=== PATIENT | female | born 1980 | race Caucasian/White ===

== ENCOUNTER 2018-10-16 12:24 | Inpatient (IN) | payer OTHER ==
[~2018-10-16 12:24] MED LIST: BACITRACIN 50,000 UNIT VIAL ONE; CLINDAMYCIN PHOSPHATE 900 MG/6 ML VIAL ONE; DEXAMETHASONE SOD PHOS 4 MG/ML VIAL ONE; LACTATED RINGERS 1,000 ML IV.SOLN IV ONE; LIDOCAINE HCL/PF 2% 100 MG/5 ML VIAL IJ ONE; NORMAL SALINE 1,000 ML IV.SOLN IV ONE; ONDANSETRON HCL/PF 4 MG/ 2ML VIAL ONE; PHENYLEPHRINE HCL 10 MG/1 ML ONE; PROPOFOL 200 MG/20 ML VIAL IV ONE; ROCURONIUM BROMIDE 10 MG/ML 5ML VIAL ONE; SEVOFLURANE 250 ML LIQUID IH ONE; SUGAMMADEX 200 mg/2mL 200 MG/2 ML VIAL IV ONE; THROMBIN (RECOMBINANT) 20,000 UNIT VIAL TP ONE
[2018-10-16] MEDS ORDERED: HYDROmorphone HCL 2 MG TABLET PO PRN (18:40)
[2018-10-16] MEDS ORDERED: PROMETHAZINE HCL 25 MG in 0.9 % SODIUM CHLORIDE 50 ML IV PRN (18:40)
[2018-10-16] MEDS ORDERED: diphenhydrAMINE HCL 50 MG/ML VIAL IVP PRN (18:40)
[2018-10-16] MEDS ORDERED: fentaNYL CITRATE/PF 100 MCG/ 2ML AMP IVP PRN ×2 (18:40)
[2018-10-16] MEDS ORDERED: MORPHINE SULFATE 4 MG/ML PREFILLED SYR IVP PRN (18:40)
[2018-10-16] MEDS ORDERED: diphenhydrAMINE HCL 25 MG TABLET PO PRN (18:40)
[2018-10-16] MEDS ORDERED: DIAZEPAM 5 MG TABLET PO PRN (18:40)
[2018-10-16] MEDS ORDERED: oxyCODONE HCL 5 MG TABLET PO PRN (18:40)
[2018-10-16] MEDS ORDERED: ONDANSETRON HCL/PF 4 MG/ 2ML VIAL IVP PRN (18:40)
[2018-10-16] MEDS ORDERED: LEVALBUTEROL HCL 1.25 MG/3 ML AMPUL.NEB NEB PRN (18:40)
[2018-10-16] MEDS ORDERED: ACETAMINOPHEN 500 MG TABLET PO PRN (18:40)
[2018-10-16] MEDS: 0.9 % SODIUM CHLORIDE 1,000 ML IV SCH (19:15)
--- NOTE | 2018-10-16 19:35 | History and Physical Report ---
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 Patient has had some chronic back pain with radiculopathy. Patient has had over 10 steroid injections over the last three years with minimal improvement. Patient back pain has continued to progress. Patient was seen by Dr. Villalobos and was felt that she would benefit from L5-S1 total disc replacement. Patient did not have any intraoperative complications or problems. Patient blood pressure was a little soft during the procedure running approximately 90-100/42-60. Patient was transferred to the floor in stable condition. - Past Medical History Cardiac: Other (heart murmur, ? related to artic valve) Pulmonary: Asthma (patient uses her rescure inhaler approximately 1 to 2 times a week.) Gastrointestinal: GERD - Past Surgical History Past Surgical History: Tonsillectomy, Other (achilles tendon repair, laparoscopic surgery for endometriosis, Left forearm fracture, Right rotator cuff repair) - Past Family History Mother Family History: None (68yo), DM (prediabetic), Other (asthma) Father Family History: None (68yo), Other (bipolar) - Past Social History Smoke: No Occupation: Disabled Alcohol: None Drugs: None Lives: Alone Domestic Violence: Negative - Health Maintenance Health Maintenance: Influenza Vaccine Influenza Vaccine: Current for this Influenza Season Pneumonia Vaccine: No Resuscitation Status: Resusciation Status Resuscitation Status Full Code - Unable to Obtain History Unable to Obtain: No Review of Systems - Review of Systems Constitutional: negative: Fever, Chills Eyes: other (glasses). negative: pain, vision change ENT: negative: Ear Pain, Nose Discharge Respiratory: negative: Cough, Dry, Shortness of Breath, Hemoptysis, SOB with Excertion, Pleuritic Pain, Sputum, Wheezing Cardiovascular: negative: Chest Pain, Palpitations, Orthopnea, Edema Gastrointestinal: Constipation. negative: Nausea, Vomiting, Abdominal Pain, Diarrhea, Melena Genitourinary: negative: Dysuria, Frequency, Incontinence Musculoskeletal: Back Pain Skin: negative: Rash Neurological: negative: Weakness, Numbness - Medications/Allergies Allergies/Adverse Reactions: Allergies Allergy/AdvReac Type Severity Reaction Status Date / Time Penicillins AdvReac Rash Verified 10/16/18 18:52 Home Medications: Home Medications Albuterol Sulfate [Proair HFA] 2 inh IH Q4H PRN 10/16/18 Diazepam [Valium] 5 mg PO TID PRN 10/16/18 Hydrocodone/Acetaminophen [[place] 5-325 Tablet] 1 tab PO TID PRN 10/16/18 Lurasidone HCl [Latuda] 20 mg PO DAILY 10/16/18 Sertraline HCl [Zoloft] 50 mg PO DAILY 10/16/18 Current Inpatient Medications: Current Inpatient Medications Acetaminophen (Tylenol Extra Strength) 500 mg PO Q4 PRN PRN Reason: for mild pain 1-4/fever Diazepam (Valium) 5 mg PO Q8H PRN PRN Reason: Anxiety/muscle spasm Stop: 10/17/18 18:39 Diphenhydramine HCl (Benadryl) 25 mg PO Q4 PRN PRN Reason: Itching or Pruritis Stop: 10/17/18 18:39 Diphenhydramine HCl (Benadryl) 25 mg IVP Q6H PRN PRN Reason: Sleeping and Itching Stop: 10/20/18 18:39 Fentanyl Citrate (Duragesic) 50 mcg IVP Q2H PRN PRN Reason: Moderate pain 5-7 Stop: 10/17/18 18:39 Fentanyl Citrate (Duragesic) 100 mcg IVP Q2H PRN PRN Reason: For Severe Pain 8-10 Stop: 10/17/18 18:39 Heparin Sodium (Porcine) (Heparin) 5,000 unit SQ Q12 [facility] Hydromorphone HCl (Dilaudid) 4 mg PO Q4H PRN PRN Reason: Severe Pain 8-10 Stop: 10/17/18 18:39 Sodium Chloride (Normal Saline) 1,000 mls @ 75 mls/hr IV Q10H LEILANI Stop: 10/17/18 18:59 Promethazine HCl 25 mg/ Sodium (Chloride) 51 mls @ 600 mls/hr IV Q6 PRN PRN Reason: Nausea / Vomiting Stop: 10/20/18 18:39 Ketorolac Tromethamine (Toradol) 15 mg IVP Q6 PRN PRN Reason: For Mild Pain 1-4 Stop: 10/20/18 18:39 Levalbuterol HCl (Xopenex) 1.25 mg NEB Q4 PRN PRN Reason: SOA, Dyspnea, or Wheezing Stop: 10/20/18 18:39 Miscellaneous (Patient Own Med) 1 each PO D [facility] Morphine Sulfate (Depodur) 4 mg IVP Q2 PRN PRN Reason: For Severe Pain 8-10 Stop: 10/17/18 18:39 Nicotine (Habitrol 14mg) 1 patch TD DAILY [facility] Ondansetron HCl (Zofran 4 Mg/2 Ml) 4 mg IVP Q6H PRN PRN Reason: Nausea / Vomiting Stop: 10/20/18 18:39 Oxycodone HCl (Percolone) 10 mg PO Q4 PRN PRN Reason: For Moderate Pain 5-7 Oxycodone/Acetaminophen (Percocet 5-325 Mg Tablet) 1 each PO Q4 PRN PRN Reason: For pain 1-4 out of 10 Oxycodone/Acetaminophen (Percocet 5-325 Mg Tablet) 2 each PO Q4 PRN PRN Reason: Moderate pain 5-7 Pantoprazole Sodium (Protonix) 40 mg PO 0700 [facility] Sertraline HCl (Zoloft) 50 mg PO DAILY [facility] Exam - Exam Vital Signs: Vital Signs (72 hours) 10/16/18 10/16/18 18:35 19:08 Temperature 97.6 F 97.1 F L Pulse Rate [ 92 H 96 H Right] Respiratory 18 20 Rate Blood Pressure 102/53 109/61 [Left Arm] O2 Sat by Pulse 95 99 Oximetry General: Alert, Oriented to Person, Oriented to Place, Oriented to Time, Moderate distress HEENT: Atraumatic, PERRLA, EOMI, Mouth Mucous membr. moist/[place], Nose Mucous membr. moist/[place] Neck: Normal Range of Motion Carotids: WNL Thyroid: WNL Lungs: Clear to auscultation, Normal air movement, Speaks full Sentences Cardiovascular: Regular rate, Normal S1, Normal S2, No murmurs, Murmur Murmur: Systolic Murmur Murmur Location: Left Sternal Boarder Heart Murmur Grade: II Abdomen: Soft, No hepatospenomegaly, No masses, Other (mild diffuse tenderness), Decreased Bowel Sounds Integumentary: Normal, [place], Warm, Dry Extremities: No clubbing, No cyanosis, No edema, Normal pulses, No tenderness/swelling Neurological: Normal gait, Normal speech, Strength Equal Bilat, Normal tone, Sensation intact, Cranial nerves 3-12 NL, Reflexes 2+ Psych/Mental Status: Mental status NL, Mood NL, Appropriate Affect, Intact Judgment - Laboratory Results Laboratory Results: Laboratory Results 10/16/18 13:55 Urine HCG, Qual Negative Assessment/Plan - Assessment/Plan (1) Chronic lower back pain Status: Chronic Current Visit: Yes Plan: s/p L5-S1 total disc replacement. I discussed with the patient the need to ambulate early and often to help prevent DVT and to speed the recovery process. Patient has been advised to do inspiratory spirometry as ordered to help prevent pneumonia development. Patient will have CBC and CMP rechecked in AM to look for evidence of bleeding and recheck electrolytes. Diet will be advanced as tolerated. (2) Asthma Status: Chronic Current Visit: Yes Assessment: Xopenex HFN PRN sob, monitor respiratory status (3) GERD without esophagitis Status: Chronic Current Visit: Yes Assessment: WIll cover with PPI (4) Depression Status: Chronic Current Visit: Yes Qualifiers: Depression Type: major depressive disorder Active/Remission status: currently active Major depression episode severity: mild Plan: Continue Latuda VTE Assessment - RISK FACTOR SCORE VTE RISK FACTOR SCORES: AGE 40-60 YEARS, MINOR SURGERY/ ANESTHESIA TIME < 1 HOUR
[2018-10-16] MEDS: oxyCODONE/ACETAMINOPHEN 5/325 TABLET PO PRN (19:56)
[2018-10-16 20:34] VITALS: BMI 24.8
[2018-10-16] MEDS: HEPARIN SODIUM 5000 UNIT/1 ML SQ SCH (21:17)
[2018-10-16] MEDS: NICOTINE 14mg PATCH.TD24 TD SCH (21:18)
[2018-10-17] MEDS: oxyCODONE/ACETAMINOPHEN 5/325 TABLET PO PRN ×6 (00:53→20:10)
[2018-10-17] MEDS: 0.9 % SODIUM CHLORIDE 1,000 ML IV SCH ×2 (06:27→08:48)
[2018-10-17] MEDS: PANTOPRAZOLE SODIUM 40 MG TABLET PO SCH (07:31)
--- NOTE | 2018-10-17 07:47 | Inpatient Progress Note ---
Subjective - Required Recertification Statement I anticipate X number of days because-include discharge plan: 1 day - Review of Systems Events since last encounter: Post op day #1 Subjective: Patient states that she is doing OK. Is still having some back pain but medication seems to be helping with it. Has been eating well. she has passed some flatus. Abd pain is improving. Has been using incentive spirometry. Has been ambulating. Pulmonary: Denies: Dyspnea Gastrointestinal: Denies: Nausea, Vomiting, Abdominal Pain, Diarrhea, Constipation Genitourinary: Denies: Dysuria Objective - Exam Vitals and I&O: Vital Signs Temp 98.8 F 10/17/18 06:00 Pulse 78 10/17/18 06:00 Resp 18 10/17/18 06:00 BP 100/52 10/17/18 06:00 Pulse Ox 99 10/17/18 06:00 Intake & Output 10/16/18 10/16/18 10/17/18 11:59 23:59 11:59 Intake Total 360 Balance 360 Weight 69.853 kg Intake: Oral 360 Other: Voiding Method Toilet # Voids 0 1 # Bowel Movements 0 General: Alert, Oriented to Person, Oriented to Place, Oriented to Time, Cooperative Neck: Supple, No JVD Lungs: Clear to auscultation, Normal air movement, Speaks full Sentences. No: Wheezes, Rales, Rhonchi Cardiovascular: Regular rate, Normal S1, Normal S2 Abdomen: Normal bowel sounds, Soft, No tenderness Extremities: No clubbing, No cyanosis, No edema Skin: Normal, [place], Warm, Dry Neurological: Normal speech, Strength Equal Bilat, Normal tone, Sensation intact, Reflexes 2+. No: Right Sided Weakness, Left Sided Weakness Psych/Mental Status: Mental status NL, Mood NL, Appropriate Affect, Intact Judgment - Results Results: Laboratory Results Urine HCG, Qual Negative (NEGATIVE) 10/16/18 13:55 Assessment/Plan - Assessment/Plan (1) Chronic lower back pain Status: Chronic Current Visit: Yes Assessment: S/P stable, seems to be progressing OK. HGb is stable. BP is stable close to patient's baseline. (2) Asthma Status: Chronic Current Visit: Yes Assessment: stable, no exacerbation (3) GERD without esophagitis Status: Chronic Current Visit: Yes Assessment: stable (4) Depression Status: Chronic Current Visit: Yes Qualifiers: Depression Type: major depressive disorder Active/Remission status: currently active Major depression episode severity: mild Assessment: stable
[2018-10-17 07:57] LABS: BASOPHILS % 0.5 (0.0-1.5); EOSINOPHILS % 1.1 % (0.0-6.8); MEAN CORPUSCULAR HEMOGLOBIN 30.5 pg (28.0-34.0); MONOCYTES % 5.3 % (0.0-11.0)
[2018-10-17 07:58] LABS: NEUTROPHILS # 14.5 # k/uL (1.4-7.7)
[2018-10-17 08:13] LABS: eGFR (Non-African) > 60
[2018-10-17] MEDS: SERTRALINE HCL 50 MG TABLET PO SCH (08:46)
[2018-10-17] MEDS: HEPARIN SODIUM 5000 UNIT/1 ML SQ SCH ×2 (08:47→20:08)
[2018-10-17] MEDS: NICOTINE 14mg PATCH.TD24 TD SCH ×2 (08:47→08:50)
[2018-10-17] MEDS ORDERED: PATIENT OWN MED 1 EACH EACH PO SCH (09:00)
[2018-10-17] MEDS: KETOROLAC TROMETHAMINE 30 MG/1ML VIAL IVP PRN ×2 (09:35→22:28)
[2018-10-17] MEDS: PATIENT OWN MED 1 EACH EACH PO SCH (17:21)
[2018-10-17] MEDS ORDERED: DIAZEPAM 5 MG TABLET PO ONE (22:00)
[2018-10-18] MEDS: oxyCODONE/ACETAMINOPHEN 5/325 TABLET PO PRN ×2 (04:10→08:31)
[2018-10-18] MEDS: PANTOPRAZOLE SODIUM 40 MG TABLET PO SCH (07:52)
[2018-10-18] MEDS: PATIENT OWN MED 1 EACH EACH PO SCH (08:31)
[2018-10-18] MEDS: HEPARIN SODIUM 5000 UNIT/1 ML SQ SCH (08:32)
[2018-10-18] MEDS: SERTRALINE HCL 50 MG TABLET PO SCH (08:32)
[2018-10-18 08:58] VITALS: BP 112/63
--- NOTE | 2018-10-18 09:21 | Discharge Summary ---
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 Patient has had some chronic back pain with radiculopathy. Patient has had over 10 steroid injections over the last three years with minimal improvement. Patient back pain has continued to progress. Patient was seen by Dr. Villalobos and was felt that she would benefit from L5-S1 total disc replacement. Patient did not have any intraoperative complications or problems. Patient blood pressure was a little soft during the procedure running approximately 90-100/42-60. Patient was transferred to the floor in stable condition. Condition at Discharge: Stable Home Medications: Ambulatory Orders Medication Instructions Recorded Albuterol Sulfate [Proair HFA] 2 inh IH Q4H PRN 10/16/18 Diazepam [Valium] 5 mg PO TID PRN 10/16/18 Hydrocodone/Acetaminophen [[place] 1 tab PO TID PRN 10/16/18 5-325 Tablet] Lurasidone HCl [Latuda] 20 mg PO DAILY 10/16/18 Sertraline HCl [Zoloft] 50 mg PO DAILY 10/16/18 Hydrocodone/Acetaminophen 1 - 2 each PO Q4 PRN #84 tablet 10/18/18 [Hydrocodon-Acetaminoph 7.5-325] Consultations this Visit: None Procedures this Visit: None Allergies/Adverse Reactions: Allergies Allergy/AdvReac Type Severity Reaction Status Date / Time Penicillins AdvReac Rash Verified 10/16/18 18:52 Patient Problems: Current Active Problems Problem Status Onset Asthma Chronic Chronic lower back pain Chronic Depression Chronic GERD without esophagitis Chronic
== END 2018-10-18 10:25 | disposition home or self-care (01) | DRG 552 ==
LOC: OPSURG 12:24 → SOUTH 18:39
PROVIDERS: ADMIT Family Medicine; ATTEND Family Medicine
DX: M51.36 Other intervertebral disc degeneration, lumbar region (principal); R03.1 Nonspecific low blood-pressure reading; K21.9 Gastro-esophageal reflux disease without esophagitis; J45.909 Unspecified asthma, uncomplicated; F32.9 Major depressive disorder, single episode, unspecified; F17.200 Nicotine dependence, unspecified, uncomplicated; Z98.890 Other specified postprocedural states; Z32.02 Encounter for pregnancy test, result negative
CPT/HCPCS: 80048; 81025; 85025; 97116; 97530; 97535; A9270; J1644; J1885; J7030; 99221; 99222; 99238; J1100; J2001; J2370; J2405; J2704; J3490; J7120

== ENCOUNTER 2018-10-16 12:31 | Day surgery (SDC) | payer OTHER ==
[~2018-10-16 12:31] MED LIST changes: +FENTANYL 250MCG/5ML VIAL ONE; +MIDAZOLAM HCL 2 MG/2 ML VIAL ONE; +ePHEDrine SULFATE 50 MG/1 ML IVP ONE
== END 2018-10-16 18:37 ==
LOC: OUT 12:31 → OPSURG 18:37
PROVIDERS: ATTEND Orthopaedic Surgery
DX: M51.17 Intervertebral disc disorders with radiculopathy, lumbosacral region (principal); M48.062 Spinal stenosis, lumbar region with neurogenic claudication
CPT/HCPCS: 22857; J1100; J2001; J2250; J2370; J2405; J2704; J3490; J7030; J7120

== ENCOUNTER 2019-10-01 12:57 | Outpatient (CLI) | payer OTHER ==
[~2019-10-01 12:57] MED LIST changes: +0.9 % SODIUM CHLORIDE PF 10 ML VIAL IJ ONE; -BACITRACIN 50,000 UNIT VIAL ONE; -CLINDAMYCIN PHOSPHATE 900 MG/6 ML VIAL ONE; -DEXAMETHASONE SOD PHOS 4 MG/ML VIAL ONE; +DEXAMETHASONE SODIUM PHOSPHATE 10 MG/ML VIAL ONE; -FENTANYL 250MCG/5ML VIAL ONE; +IOHEXOL 240 MG/ML BOTTLE 50 ML ONE; -LACTATED RINGERS 1,000 ML IV.SOLN IV ONE; -LIDOCAINE HCL/PF 2% 100 MG/5 ML VIAL IJ ONE; +Lidocaine 1% 5ml 10 MG/ML VIAL ONE; -MIDAZOLAM HCL 2 MG/2 ML VIAL ONE; -NORMAL SALINE 1,000 ML IV.SOLN IV ONE; -ONDANSETRON HCL/PF 4 MG/ 2ML VIAL ONE; -PHENYLEPHRINE HCL 10 MG/1 ML ONE; -PROPOFOL 200 MG/20 ML VIAL IV ONE; -ROCURONIUM BROMIDE 10 MG/ML 5ML VIAL ONE; -SEVOFLURANE 250 ML LIQUID IH ONE; -SUGAMMADEX 200 mg/2mL 200 MG/2 ML VIAL IV ONE; -THROMBIN (RECOMBINANT) 20,000 UNIT VIAL TP ONE; -ePHEDrine SULFATE 50 MG/1 ML IVP ONE
== END 2019-10-01 13:27 ==
LOC: OUT 12:57
PROVIDERS: ATTEND Physical Medicine & Rehabilitation
DX: M48.02 Spinal stenosis, cervical region (principal); M54.12 Radiculopathy, cervical region; M54.2 Cervicalgia
CPT/HCPCS: 62321